=== PATIENT | male | born 1950 | race Caucasian/White ===

== ENCOUNTER 2023-07-05 10:26 | Emergency (ER) | payer MEDICARE ==
[2023-07-05 10:53] LABS: BASOPHILS ABSOLUTE AUTO 0.02 10^3/uL (0.00-0.10); BASOPHILS PERCENT AUTO 0.3 % (0.0-1.0); EOSINOPHILS ABSOLUTE AUTO 0.22 10^3/uL (0.10-0.30); HEMATOCRIT 45.9 % (40.0-52.0); IMMATURE GRAN ABSOLUTE AUTO 0.01 10^3/uL (0.00-0.50); IMMATURE GRAN PERCENT AUTO 0.1 % (0.0-5.0); LYMPHOCYTES ABSOLUTE AUTO 0.87 10^3/uL (1.00-4.00); MEAN CORPUSCULAR HEMOGLOBIN 30.1 pg (27.0-31.0); MEAN CORPUSCULAR HGB CONC 32.7 g/dL (32.0-36.0); MEAN CORPUSCULAR VOLUME 92.2 fL (82.0-92.0); MEAN PLATELET VOLUME 9.2 fL (7.4-10.4); MONOCYTES PERCENT AUTO 5.5 % (2.0-8.0); NEUTROPHILS ABSOLUTE AUTO 5.72 10^3/uL (2.50-7.00); NEUTROPHILS PERCENT AUTO 79.1 % (50.0-70.0); PLATELET COUNT,PLT 274 10^3/uL (150-400); RED BLOOD CELL COUNT 4.98 10^6/uL (4.50-6.00); RED CELL DISTRIBUTION WIDTH 14.8 % (11.5-14.5); WHITE BLOOD CELL COUNT,WBC 7.24 10^3/uL (5.00-10.00)
[2023-07-05 11:09] LABS: ANION GAP 13.3 mmol/L (5-15); CALCIUM 8.5 mg/dL (8.7-10.3); CARBON DIOXIDE,CO2 25.8 mmol/L (21.0-32.0); CREATININE 0.92 mg/dL (0.51-1.17); EST CRCL DRUG DOSING (CG) 64.06 mL/min; POTASSIUM,K 4.1 mmol/L (3.5-5.1)
[2023-07-05] MEDS ORDERED: Sodium Chloride 0.9% 1,000 ML IV ONE (11:14)
[2023-07-05] MEDS ORDERED: Sodium Chloride 0.9% 1,000 ML ONE (11:15)
[2023-07-05] MEDS ORDERED: Tenecteplase 50 MG Kit IVPUSH ONE (12:03)
[2023-07-05] MEDS ORDERED: Sodium Chloride 0.9% 1,000 ML IV SCH (12:45)
[2023-07-05 12:47] VITALS: BP 151/89; PULSE 65
== END 2023-07-05 12:38 ==
LOC: KA.ED 10:26
DX: I63.9 Cerebral infarction, unspecified (principal); K21.9 Gastro-esophageal reflux disease without esophagitis; E78.00 Pure hypercholesterolemia, unspecified; Z91.09 Other allergy status, other than to drugs and biological substances; Z79.899 Other long term (current) drug therapy; F17.210 Nicotine dependence, cigarettes, uncomplicated
CPT/HCPCS: 37195; 70450; 80048; 82947; 84484; 85025; 93005; 93010; 96360; 99284; 99285-25; J3101; J7030

== ENCOUNTER 2023-11-05 17:48 | Emergency (ER) | payer MEDICARE ==
[2023-11-05] MEDS ORDERED: Sodium Chloride 0.9% 10 ML Syringe FLUSH PRN (17:54)
[2023-11-05 18:05] LABS: BASOPHILS ABSOLUTE AUTO 0.02 10^3/uL (0.00-0.10); BASOPHILS PERCENT AUTO 0.3 % (0.0-1.0); EOSINOPHILS ABSOLUTE AUTO 0.17 10^3/uL (0.10-0.30); EOSINOPHILS PERCENT AUTO 2.3 % (1.0-3.0); HEMATOCRIT 47.3 % (40.0-52.0); HEMOGLOBIN 15.7 g/dL (13.0-17.0); IMMATURE GRAN ABSOLUTE AUTO 0.01 10^3/uL (0.00-0.50); IMMATURE GRAN PERCENT AUTO 0.1 % (0.0-5.0); LYMPHOCYTES ABSOLUTE AUTO 2.05 10^3/uL (1.00-4.00); MEAN CORPUSCULAR HEMOGLOBIN 30.9 pg (27.0-31.0); MEAN CORPUSCULAR HGB CONC 33.2 g/dL (32.0-36.0); MEAN CORPUSCULAR VOLUME 93.1 fL (82.0-92.0); MEAN PLATELET VOLUME 8.9 fL (7.4-10.4); MONOCYTES ABSOLUTE AUTO 0.48 10^3/uL (0.10-0.80); MONOCYTES PERCENT AUTO 6.6 % (2.0-8.0); NEUTROPHILS ABSOLUTE AUTO 4.59 10^3/uL (2.50-7.00); NEUTROPHILS PERCENT AUTO 62.7 % (50.0-70.0); PLATELET COUNT,PLT 266 10^3/uL (150-400); RED BLOOD CELL COUNT 5.08 10^6/uL (4.50-6.00); WHITE BLOOD CELL COUNT,WBC 7.32 10^3/uL (5.00-10.00)
[2023-11-05 18:13] VITALS: BP 129/76; PULSE 73
[2023-11-05 18:23] LABS: ALBUMIN 3.18 g/dL (3.40-5.00); ANION GAP 13.5 mmol/L (5-15); BILIRUBIN TOTAL 0.6 mg/dL (0.2-1.0); CALCIUM 8.8 mg/dL (8.7-10.3); CARBON DIOXIDE,CO2 28.1 mmol/L (21.0-32.0); CREATININE 0.98 mg/dL (0.51-1.17); EST CRCL DRUG DOSING (CG) 60.14 mL/min; POTASSIUM,K 3.6 mmol/L (3.5-5.1); PROTEIN TOTAL,TP 7.3 g/dL (6.4-8.2)
== END 2023-11-05 19:03 | disposition home or self-care (01) ==
LOC: KA.ED 17:48
DX: R55 Syncope and collapse (principal); E78.00 Pure hypercholesterolemia, unspecified; Z91.048 Other nonmedicinal substance allergy status
CPT/HCPCS: 36415; 70450; 71045; 80053; 84484; 85025; 99284

== ENCOUNTER 2025-04-27 20:20 | Emergency (ER) | payer MEDICARE ==
[2025-04-27 20:42] LABS: BASOPHILS ABSOLUTE AUTO 0.01 10^3/uL (0.00-0.10); BASOPHILS PERCENT AUTO 0.1 % (0.0-1.0); EOSINOPHILS ABSOLUTE AUTO 0.05 10^3/uL (0.10-0.30); EOSINOPHILS PERCENT AUTO 0.6 % (1.0-3.0); IMMATURE GRAN ABSOLUTE AUTO 0.01 10^3/uL (0.00-0.04); IMMATURE GRAN PERCENT AUTO 0.1 % (0.0-0.4); LYMPHOCYTES ABSOLUTE AUTO 0.60 10^3/uL (1.00-4.00); LYMPHOCYTES PERCENT AUTO 7.7 % (20.0-40.0); MEAN PLATELET VOLUME 9.3 fL (7.4-10.4); MONOCYTES ABSOLUTE AUTO 0.28 10^3/uL (0.10-0.80); MONOCYTES PERCENT AUTO 3.6 % (2.0-8.0); NEUTROPHILS ABSOLUTE AUTO 6.83 10^3/uL (2.50-7.00); NEUTROPHILS PERCENT AUTO 87.9 % (50.0-70.0); PLATELET COUNT,PLT 240 10^3/uL (150-400); RED BLOOD CELL COUNT 4.48 10^6/uL (4.50-6.00); RED CELL DISTRIBUTION WIDTH 13.7 % (11.5-14.5); WHITE BLOOD CELL COUNT,WBC 7.78 10^3/uL (5.00-10.00)
[2025-04-27 21:00] LABS: ALANINE AMINOTRANSFERASE,ALT 21.0 U/L (14-63); ASPARTATE AMNIOTRANSFERASE,AST 15.0 U/L (15-37); BILIRUBIN TOTAL 0.5 mg/dL (0.2-1.0); BLOOD UREA NITROGEN,BUN 17.0 mg/dL (7-18); CARBON DIOXIDE,CO2 28.9 mmol/L (21.0-32.0); CHLORIDE,CL 103.0 mmol/L (98-107); CREATININE 1.14 mg/dL (0.51-1.17); EST CRCL DRUG DOSING (CG) 50.2 mL/min; ESTIMATED GFR 68.0 mL/min (>=60); GLUCOSE RANDOM 199.0 mg/dL (70-140); POTASSIUM,K 4.5 mmol/L (3.5-5.1); PROTEIN TOTAL,TP 6.4 g/dL (6.4-8.2); SODIUM,NA 140.0 mmol/L (136-145)
[2025-04-27 21:56] VITALS: BP 124/58; PULSE 67
== END 2025-04-27 22:03 | disposition home or self-care (01) ==
LOC: KA.ED 20:20
DX: R55 Syncope and collapse (principal); Z91.048 Other nonmedicinal substance allergy status; Z79.899 Other long term (current) drug therapy
CPT/HCPCS: 36415; 71045; 80053; 84484; 85025; 99285